=== PATIENT | male | born 1955 | race Caucasian/White ===

== ENCOUNTER → 2017-08-22 | Outpatient (CLI) | payer MEDICARE | LOC: CVU 07:39 | PROVIDERS: ATTEND Internal Medicine Cardiovascular Disease | DX: R94.31 Abnormal electrocardiogram [ECG] [EKG] (principal) | CPT/HCPCS: 93306 ==

== ENCOUNTER → 2017-08-23 | Outpatient (CLI) | payer MEDICARE | END | disposition home or self-care (01) | LOC: CFH 12:15 | PROVIDERS: ATTEND Internal Medicine Cardiovascular Disease | DX: Z01.810 Encounter for preprocedural cardiovascular examination (principal); R94.31 Abnormal electrocardiogram [ECG] [EKG] | CPT/HCPCS: 78452; 93017; A9502 ==

== ENCOUNTER 2019-03-12 14:43 | Outpatient (CLI) | END 2019-03-12 23:59 | disposition home or self-care (01) | LOC: RAD 14:43 | PROVIDERS: ATTEND Orthopaedic Surgery | DX: S76.111D Strain of right quadriceps muscle, fascia and tendon, subsequent encounter (principal); M79.661 Pain in right lower leg; X58.XXXD Exposure to other specified factors, subsequent encounter ==

== ENCOUNTER 2019-05-01 18:12 | Inpatient (IN) | payer MEDICARE ==
[~2019-05-01] VITALS: Ht 185.4 cm; Wt 105.9 kg
--- NOTE | 2019-05-01 18:59 | NUR ---
TASK RN: PT AMBULATORY WITH STEADY GAIT FROM LOBBY TO ROOM 37
--- NOTE | 2019-05-01 19:15 | NUR ---
THIS IS A 63 YO M W/ C/O LEFT LEG SWELLING, REDNESS AND PAIN POST CALF SX 12/25/18. RESP EVEN AND UNLABORED. NADN. VS UPDATED. PIV STARTED AND LABS DRAWN. CALL ALLAN IN REACH. DENIES FURTHER NEEDS AT THIS TIME. AWAITING ORDERS.
[2019-05-01 19:46] LABS: BASOPHILS # (AUTO) 0.04 x10^3/uL (0-0.1); BASOPHILS % (AUTO) 1 % (0-1); EOSINOPHILS % (AUTO) 4 % (1-7); LYMPHOCYTES # (AUTO) 1.77 x10^3/uL (1-3.4); LYMPHOCYTES % (AUTO) 20 % (22-44); MD NO; MEAN CORPUSCULAR HEMOGLOBIN 33.2 pg (27.5-34.5); MEAN CORPUSCULAR HGB CONC 33.3 g/dL (33.2-36.2); MEAN CORPUSCULAR VOLUME 99.7 fL (81-97); MEAN PLATELET VOLUME 8.4 fL (7.4-10.4); MONOCYTES # (AUTO) 1.06 x10^3/uL (0.2-0.8); MONOCYTES % (AUTO) 12 % (2-9); NEUTROPHILS # (AUTO) 5.49 x10^3/uL (1.8-6.8); NEUTROPHILS % (AUTO) 63 % (42-75); PLATELET COUNT 197 x10^3/uL (130-400); RED BLOOD COUNT 4.44 x10^6/uL (4.38-5.82); RED CELL DISTRIBUTION WIDTH 13.8 % (9.4-14.8)
[2019-05-01 19:55] LABS: INTERNATIONAL NORMALIZED RATIO 0.95 (0.93-1.1); PROTHROMBIN TIME 10.1 Seconds (9.6-11.5)
[2019-05-01 19:56] LABS: ALBUMIN 3.7 g/dL (3.4-5.0); ANION GAP 6 mmol/L (5-15); CHLORIDE 106 mmol/L (98-107)
[2019-05-01 19:59] LABS: ALANINE AMINOTRANSFERASE 22 U/L (12-78); ALKALINE PHOSPHATASE 98 U/L (45-117); BILIRUBIN,TOTAL 1.4 mg/dL (0.2-1.0); CREATININE 1.23 mg/dL (0.7-1.3); TOTAL PROTEIN 7.3 g/dL (6.4-8.2)
--- NOTE | 2019-05-01 20:46 | NUR ---
PT TO CT
--- NOTE | 2019-05-01 21:04 | NUR ---
VS UPDATED. PT RESTING ON GURNEY WATCHING TV AWAITING CTA RESULTS. CALL LIGHT IN REACH. DENIES FURTHER NEEDS AT THIS TIME.
[2019-05-01] MEDS ORDERED: OMNIPAQUE 350 MG/ML, 100ML BOTTLE ONE (21:14)
--- NOTE | 2019-05-01 21:27 | NUR ---
ALL TESTS RESULTED. PT IS UP FOR RECHECK AT THIS TIME.
[2019-05-01] MEDS ORDERED: APIXABAN 5 MG TABLET PO ONE (22:00)
[2019-05-01] MEDS ORDERED: APIXABAN 5 MG TABLET ONE ×2 (22:05)
--- NOTE | 2019-05-01 22:08 | NUR ---
VS UPDATED. PT AWARE OF POC TO BE ADMITTED. CALL LIGHT IN REACH. DENIES FURTHER NEEDS AT THIS TIME.
--- NOTE | 2019-05-01 23:02 | NUR ---
REPORT FROM CARLTON ROESN. AWAITING BED ASSIGNMENT.
--- NOTE | 2019-05-01 23:07 | NUR ---
REPORT TO CARLTON RODRIGUEZ. PT PREPARED FOR TRANSPORT
[2019-05-01 23:30] VITALS: BP 129/65
[2019-05-01 23:51] VITALS: BP 129/65
[2019-05-02] MEDS ORDERED: LIDODERM 5% PATCH TD PRN
[2019-05-02] MEDS ORDERED: ONDANSETRON ODT 4 MG PO PRN
[2019-05-02] MEDS ORDERED: ENALAPRILAT 1.25 MG/ML, 2ML IVPush PRN
[2019-05-02] MEDS ORDERED: ACETAMINOPHEN 325 MG TABLET PO PRN
[2019-05-02] MEDS ORDERED: DOCUSATE 100 MG CAPSULE PO PRN
[2019-05-02] MEDS: IBUPROFEN 200 MG TABLET PO PRN ×3 (00:34→20:10)
[2019-05-02 06:21] LABS: ANION GAP 5 mmol/L (5-15); BASOPHILS # (AUTO) 0.03 x10^3/uL (0-0.1); BASOPHILS % (AUTO) 1 % (0-1); CHLORIDE 109 mmol/L (98-107); EOSINOPHILS # (AUTO) 0.28 x10^3/uL (0-0.4); EOSINOPHILS % (AUTO) 4 % (1-7); LYMPHOCYTES # (AUTO) 1.69 x10^3/uL (1-3.4); LYMPHOCYTES % (AUTO) 27 % (22-44); MD NO; MEAN CORPUSCULAR HEMOGLOBIN 33.5 pg (27.5-34.5); MEAN CORPUSCULAR HGB CONC 33.5 g/dL (33.2-36.2); MEAN CORPUSCULAR VOLUME 99.9 fL (81-97); MEAN PLATELET VOLUME 7.8 fL (7.4-10.4); MONOCYTES # (AUTO) 0.87 x10^3/uL (0.2-0.8); MONOCYTES % (AUTO) 14 % (2-9); NEUTROPHILS # (AUTO) 3.42 x10^3/uL (1.8-6.8); NEUTROPHILS % (AUTO) 55 % (42-75); PLATELET COUNT 192 x10^3/uL (130-400); RED BLOOD COUNT 3.97 x10^6/uL (4.38-5.82); RED CELL DISTRIBUTION WIDTH 13.9 % (9.4-14.8)
[2019-05-02 06:22] LABS: CREATININE 1.06 mg/dL (0.7-1.3)
[2019-05-02 06:50] VITALS: BP 116/79
[2019-05-02] MEDS ORDERED: APIXABAN 5 MG TABLET PO SCH (09:00)
[2019-05-02] MEDS ORDERED: SODIUM CHLORIDE 0.9% 1,000 ML IV SCH (10:22)
[2019-05-02] MEDS ORDERED: CEFAZOLIN PMX 1GM/50ML 50 ML IVPB ONE (10:30)
[2019-05-02] MEDS ORDERED: LIDOCAINE 2%, 20ML ONE (12:04)
[2019-05-02] MEDS ORDERED: CEFAZOLIN PMX 1GM/50ML 0 ML ONE (12:04)
[2019-05-02] MEDS ORDERED: FENTANYL PF 100 MCG/2ML ONE (12:04)
[2019-05-02] MEDS ORDERED: MIDAZOLAM 1 MG/ML, 5ML ONE (12:04)
[2019-05-02] MEDS ORDERED: CEFAZOLIN 1,000 MG ONE (12:04)
[2019-05-02 14:02] VITALS: BP 112/73
[2019-05-02] MEDS ORDERED: HEPARIN 5,000 UNITS/ML, 1ML IV PRN (14:30)
[2019-05-02] MEDS ORDERED: HEPARIN 5,000 UNITS/ML, 1ML IV ONE (14:30)
[2019-05-02] MEDS ORDERED: HEPARIN 25,000 UNITS/250ML PMX 250 ML IV PRN (14:30)
[2019-05-02 20:07] VITALS: BP 101/56
[2019-05-02] MEDS: TEMAZEPAM 15 MG CAPSULE PO PRN (20:10)
[2019-05-02] MEDS: CALCIUM CARBONATE 500 MG TAB.CHEW PO PRN (20:14)
[2019-05-03 01:35] VITALS: BP 113/72
[2019-05-03 07:05] VITALS: BP 110/63
[2019-05-03] MEDS: SODIUM CHLORIDE 0.9% 1,000 ML IV SCH ×2 (10:14→16:59)
[2019-05-03] MEDS ORDERED: CEFAZOLIN PMX 1GM/50ML 50 ML IVPB ONE (12:00)
[2019-05-03] MEDS ORDERED: CEFAZOLIN PMX 1GM/50ML 50 ML ONE (12:33)
[2019-05-03] MEDS ORDERED: MIDAZOLAM 1 MG/ML, 5ML ONE (12:33)
[2019-05-03] MEDS ORDERED: FENTANYL PF 100 MCG/2ML ONE ×2 (12:33→13:29)
[2019-05-03] MEDS ORDERED: CEFAZOLIN 1,000 MG ONE (12:34)
[2019-05-03] MEDS ORDERED: DIPHENHYDRAMINE 50 MG/ML, 1ML ONE (13:24)
[2019-05-03] MEDS ORDERED: LIDOCAINE 1%, 20ML ONE (13:29)
[2019-05-03] MEDS ORDERED: HOLD MEDICATION MC PRN (14:30)
[2019-05-03] MEDS: HYDROcodone/APAP 5/325 TABLET PO PRN ×2 (14:47→18:47)
[2019-05-03 15:05] VITALS: BP 116/75
[2019-05-03 18:52] VITALS: BP 115/75
[2019-05-03] MEDS: SODIUM CHLORIDE FLUSH 10ML SYR IVF SCH (21:00)
[2019-05-03] MEDS: CALCIUM CARBONATE 500 MG TAB.CHEW PO PRN (21:18)
[2019-05-03] MEDS: TEMAZEPAM 15 MG CAPSULE PO PRN (21:32)
[2019-05-03] MEDS: CEFAZOLIN PMX 1GM/50ML 50 ML IVPB SCH (21:32)
[2019-05-04 00:40] VITALS: BP 117/74
[2019-05-04] MEDS: HYDROcodone/APAP 5/325 TABLET PO PRN ×3 (04:19→17:33)
[2019-05-04] MEDS: CEFAZOLIN PMX 1GM/50ML 50 ML IVPB SCH ×2 (04:55→14:10)
[2019-05-04 05:16] LABS: CHLORIDE 109 mmol/L (98-107)
[2019-05-04 05:25] LABS: ALANINE AMINOTRANSFERASE 18 U/L (12-78); ALKALINE PHOSPHATASE 77 U/L (45-117); ANION GAP 4 mmol/L (5-15); BILIRUBIN,TOTAL 0.5 mg/dL (0.2-1.0); CALCIUM 8.2 mg/dL (8.5-10.1); CREATININE 0.87 mg/dL (0.7-1.3); TOTAL PROTEIN 6.2 g/dL (6.4-8.2)
[2019-05-04 06:18] LABS: BASOPHILS # (AUTO) 0.03 x10^3/uL (0-0.1); BASOPHILS % (AUTO) 0 % (0-1); EOSINOPHILS # (AUTO) 0.26 x10^3/uL (0-0.4); EOSINOPHILS % (AUTO) 4 % (1-7); LYMPHOCYTES # (AUTO) 1.36 x10^3/uL (1-3.4); LYMPHOCYTES % (AUTO) 20 % (22-44); MD NO; MEAN CORPUSCULAR HEMOGLOBIN 33.3 pg (27.5-34.5); MEAN CORPUSCULAR HGB CONC 33.4 g/dL (33.2-36.2); MEAN CORPUSCULAR VOLUME 99.7 fL (81-97); MEAN PLATELET VOLUME 8.1 fL (7.4-10.4); MONOCYTES # (AUTO) 0.66 x10^3/uL (0.2-0.8); MONOCYTES % (AUTO) 10 % (2-9); NEUTROPHILS # (AUTO) 4.56 x10^3/uL (1.8-6.8); NEUTROPHILS % (AUTO) 67 % (42-75); PLATELET COUNT 238 x10^3/uL (130-400); RED BLOOD COUNT 3.85 x10^6/uL (4.38-5.82); RED CELL DISTRIBUTION WIDTH 13.5 % (9.4-14.8)
[2019-05-04 06:33] VITALS: BP 143/82
[2019-05-04] MEDS: SODIUM CHLORIDE FLUSH 10ML SYR IVF SCH ×2 (09:00→21:00)
[2019-05-04] MEDS: IBUPROFEN 200 MG TABLET PO PRN ×2 (13:19→21:54)
[2019-05-04 13:25] VITALS: BP 114/75
[2019-05-04] MEDS: CALCIUM CARBONATE 500 MG TAB.CHEW PO PRN ×2 (16:32→21:54)
[2019-05-04 19:19] VITALS: BP 111/69
[2019-05-04] MEDS ORDERED: APIXABAN 5 MG TABLET PO ONE (21:00)
[2019-05-04] MEDS: TEMAZEPAM 15 MG CAPSULE PO PRN (22:03)
[2019-05-05 01:29] VITALS: BP 148/89
[2019-05-05] MEDS: HYDROcodone/APAP 5/325 TABLET PO PRN ×4 (04:19→20:40)
[2019-05-05 05:10] LABS: ANION GAP 5 mmol/L (5-15); CALCIUM 8.5 mg/dL (8.5-10.1); CHLORIDE 106 mmol/L (98-107); CREATININE 0.89 mg/dL (0.7-1.3)
[2019-05-05 05:17] LABS: BASOPHILS # (AUTO) 0.03 x10^3/uL (0-0.1); BASOPHILS % (AUTO) 1 % (0-1); EOSINOPHILS # (AUTO) 0.28 x10^3/uL (0-0.4); EOSINOPHILS % (AUTO) 5 % (1-7); LYMPHOCYTES # (AUTO) 1.51 x10^3/uL (1-3.4); LYMPHOCYTES % (AUTO) 25 % (22-44); MD NO; MEAN CORPUSCULAR HEMOGLOBIN 33.3 pg (27.5-34.5); MEAN CORPUSCULAR HGB CONC 33.3 g/dL (33.2-36.2); MEAN CORPUSCULAR VOLUME 99.8 fL (81-97); MEAN PLATELET VOLUME 8.3 fL (7.4-10.4); MONOCYTES # (AUTO) 0.68 x10^3/uL (0.2-0.8); MONOCYTES % (AUTO) 11 % (2-9); NEUTROPHILS # (AUTO) 3.57 x10^3/uL (1.8-6.8); NEUTROPHILS % (AUTO) 59 % (42-75); PLATELET COUNT 246 x10^3/uL (130-400); RED BLOOD COUNT 4.05 x10^6/uL (4.38-5.82); RED CELL DISTRIBUTION WIDTH 13.6 % (9.4-14.8)
[2019-05-05 08:31] VITALS: BP 115/77
[2019-05-05] MEDS: APIXABAN 5 MG TABLET PO SCH ×2 (08:36→20:39)
[2019-05-05] MEDS: SODIUM CHLORIDE FLUSH 10ML SYR IVF SCH ×2 (08:36→20:50)
[2019-05-05] MEDS ORDERED: BUPR450T PO (08:46)
[2019-05-05] MEDS ORDERED: FEXO1TAB29 PO (08:46)
[2019-05-05] MEDS ORDERED: TAMS-11 PO (08:46)
[2019-05-05] MEDS ORDERED: FUROSEMIDE 20 MG TABLET PO ONE (11:00)
[2019-05-05] MEDS: TAMSULOSIN 0.4 MG CAP.ER.24H PO SCH (11:33)
[2019-05-05 13:20] VITALS: BP 115/72
[2019-05-05 20:08] VITALS: BP 116/78
[2019-05-05] MEDS: TEMAZEPAM 15 MG CAPSULE PO PRN (20:39)
[2019-05-05] MEDS: CALCIUM CARBONATE 500 MG TAB.CHEW PO PRN (20:40)
[2019-05-06] MEDS: HYDROcodone/APAP 5/325 TABLET PO PRN ×4 (02:29→21:42)
[2019-05-06 02:30] VITALS: BP 116/78
[2019-05-06 07:15] VITALS: BP 117/84
[2019-05-06] MEDS: APIXABAN 5 MG TABLET PO SCH ×2 (08:05→21:41)
[2019-05-06] MEDS: TAMSULOSIN 0.4 MG CAP.ER.24H PO SCH (08:05)
[2019-05-06] MEDS: SODIUM CHLORIDE FLUSH 10ML SYR IVF SCH ×2 (08:06→21:00)
[2019-05-06 08:09] LABS: ANION GAP 5 mmol/L (5-15); CALCIUM 8.4 mg/dL (8.5-10.1); CHLORIDE 106 mmol/L (98-107); CREATININE 0.89 mg/dL (0.7-1.3)
[2019-05-06] MEDS: CALCIUM CARBONATE 500 MG TAB.CHEW PO PRN ×3 (11:22→20:38)
[2019-05-06 13:40] VITALS: BP 114/74
[2019-05-06 19:41] VITALS: BP 130/84
[2019-05-06] MEDS: TEMAZEPAM 15 MG CAPSULE PO PRN (21:41)
[2019-05-07 00:18] VITALS: BP 138/84
[2019-05-07] MEDS: HYDROcodone/APAP 5/325 TABLET PO PRN ×3 (03:02→21:22)
[2019-05-07 06:45] VITALS: BP 106/71
[2019-05-07 07:29] LABS: BASOPHILS # (AUTO) 0.03 x10^3/uL (0-0.1); BASOPHILS % (AUTO) 1 % (0-1); EOSINOPHILS # (AUTO) 0.28 x10^3/uL (0-0.4); EOSINOPHILS % (AUTO) 4 % (1-7); LYMPHOCYTES # (AUTO) 1.61 x10^3/uL (1-3.4); LYMPHOCYTES % (AUTO) 25 % (22-44); MD NO; MEAN CORPUSCULAR HEMOGLOBIN 33.6 pg (27.5-34.5); MEAN CORPUSCULAR HGB CONC 33.5 g/dL (33.2-36.2); MEAN CORPUSCULAR VOLUME 100.3 fL (81-97); MEAN PLATELET VOLUME 7.9 fL (7.4-10.4); MONOCYTES # (AUTO) 0.61 x10^3/uL (0.2-0.8); MONOCYTES % (AUTO) 10 % (2-9); NEUTROPHILS % (AUTO) 61 % (42-75); PLATELET COUNT 283 x10^3/uL (130-400); RED BLOOD COUNT 4.18 x10^6/uL (4.38-5.82); RED CELL DISTRIBUTION WIDTH 13.3 % (9.4-14.8)
[2019-05-07 07:38] LABS: ANION GAP 7 mmol/L (5-15); CALCIUM 8.5 mg/dL (8.5-10.1); CHLORIDE 107 mmol/L (98-107); CREATININE 0.93 mg/dL (0.7-1.3)
[2019-05-07] MEDS: TAMSULOSIN 0.4 MG CAP.ER.24H PO SCH (08:13)
[2019-05-07] MEDS: CALCIUM CARBONATE 500 MG TAB.CHEW PO PRN ×3 (08:13→18:37)
[2019-05-07] MEDS: APIXABAN 5 MG TABLET PO SCH ×2 (08:14→21:22)
[2019-05-07] MEDS: SODIUM CHLORIDE FLUSH 10ML SYR IVF SCH ×2 (08:14→21:00)
[2019-05-07 14:25] VITALS: BP 124/80
[2019-05-07 20:08] VITALS: BP 127/88
[2019-05-07] MEDS: TEMAZEPAM 15 MG CAPSULE PO PRN (21:22)
[2019-05-08 03:33] VITALS: BP 116/76
[2019-05-08] MEDS: HYDROcodone/APAP 5/325 TABLET PO PRN (06:37)
[2019-05-08 08:07] VITALS: BP 118/75
[2019-05-08] MEDS: SODIUM CHLORIDE FLUSH 10ML SYR IVF SCH (09:00)
[2019-05-08] MEDS: APIXABAN 5 MG TABLET PO SCH (09:11)
[2019-05-08] MEDS: CALCIUM CARBONATE 500 MG TAB.CHEW PO PRN ×2 (09:11→14:13)
[2019-05-08] MEDS: TAMSULOSIN 0.4 MG CAP.ER.24H PO SCH (09:11)
[2019-05-08] MEDS ORDERED: APIX5TAB PO (11:23)
[2019-05-08 13:23] VITALS: BP 111/75
[2019-05-12] MEDS ORDERED: APIXABAN 5 MG TABLET PO SCH (09:00)
== END 2019-05-08 16:05 | disposition home or self-care (01) | DRG 981 ==
LOC: ED 23:05 → 5SO 23:41 → DCLOUNGE 05-08 15:54
PROVIDERS: ADMIT Internal Medicine; ATTEND Hospitalist
PROC: 02H63JZ Insertion of Pacemaker Lead into Right Atrium, Percutaneous Approach (ICD-10-PCS; principal; 2019-05-03)
PROC: 02HK3JZ Insertion of Pacemaker Lead into Right Ventricle, Percutaneous Approach (ICD-10-PCS; 2019-05-03)
PROC: 0JH606Z Insertion of Pacemaker, Dual Chamber into Chest Subcutaneous Tissue and Fascia, Open Approach (ICD-10-PCS; 2019-05-03)
DX: I26.99 Other pulmonary embolism without acute cor pulmonale (principal); J96.01 Acute respiratory failure with hypoxia; I82.402 Acute embolism and thrombosis of unspecified deep veins of left lower extremity; I44.2 Atrioventricular block, complete; I27.20 Pulmonary hypertension, unspecified; F10.10 Alcohol abuse, uncomplicated; E78.00 Pure hypercholesterolemia, unspecified; I50.9 Heart failure, unspecified; Z82.3 Family history of stroke; Z79.01 Long term (current) use of anticoagulants; F17.200 Nicotine dependence, unspecified, uncomplicated; F12.90 Cannabis use, unspecified, uncomplicated; E78.5 Hyperlipidemia, unspecified; Z88.5 Allergy status to narcotic agent
CPT/HCPCS: 33208; 36415; 71045; 71275; 80048; 80053; 83735; 85025; 85520; 85610; 85730; 93005; 99156; 99157; 99285; C1779; C1785; C1892; G0378; J0690; J2250; J3010; Q9967; J1200; J7030

== ENCOUNTER → 2019-05-01 | Outpatient (CLI) | payer MEDICARE | END | disposition home or self-care (01) | LOC: RAD 16:45 | PROVIDERS: ATTEND Physician Assistant Surgical | DX: S76.112D Strain of left quadriceps muscle, fascia and tendon, subsequent encounter (principal); I82.412 Acute embolism and thrombosis of left femoral vein; I82.432 Acute embolism and thrombosis of left popliteal vein; I82.4Z2 Acute embolism and thrombosis of unspecified deep veins of left distal lower extremity; X58.XXXD Exposure to other specified factors, subsequent encounter ==

== ENCOUNTER 2019-05-16 15:43 | Emergency (ER) | payer MEDICARE ==
[~2019-05-16] VITALS: Ht 188 cm; Wt 107.9 kg
[~2019-05-16 15:43] MED LIST: APIX5TAB PO; BUPR450T PO; FEXO1TAB29 PO; TAMS-11 PO
--- NOTE | 2019-05-16 16:37 | NUR ---
Pt to rm 17 from [facility]
--- NOTE | 2019-05-16 16:57 | NUR ---
PT AMBULATORY TO ED FROM HOME. SENT IN PER HH RN: INCR EDEMA BILAT LOWERS, SOB AT REST. 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 L LEG>R LEG, L LEG RED, WARM. 3+PITTING EDEMA. DP 1+ L LEG, 2+ R LEG. ALSO HAS PACEMAKER L CHEST FOR UNK REASON. DENIES CP. NOT COUGHING ANYTHING UP. 95% RA. PIV EST LABS DRAWN. PACED ON MONITOR. VSS. CALL MADRID IN REACH. AWAITING PROVIDER.
[2019-05-16 17:30] LABS: BASOPHILS # (AUTO) 0.04 x10^3/uL (0-0.1); BASOPHILS % (AUTO) 1 % (0-1); EOSINOPHILS # (AUTO) 0.24 x10^3/uL (0-0.4); EOSINOPHILS % (AUTO) 4 % (1-7); LYMPHOCYTES # (AUTO) 1.58 x10^3/uL (1-3.4); LYMPHOCYTES % (AUTO) 27 % (22-44); MD NO; MEAN CORPUSCULAR HEMOGLOBIN 33.1 pg (27.5-34.5); MEAN CORPUSCULAR HGB CONC 32.9 g/dL (33.2-36.2); MEAN CORPUSCULAR VOLUME 100.5 fL (81-97); MEAN PLATELET VOLUME 8.4 fL (7.4-10.4); MONOCYTES # (AUTO) 0.43 x10^3/uL (0.2-0.8); MONOCYTES % (AUTO) 7 % (2-9); NEUTROPHILS # (AUTO) 3.64 x10^3/uL (1.8-6.8); NEUTROPHILS % (AUTO) 61 % (42-75); PLATELET COUNT 307 x10^3/uL (130-400); RED BLOOD COUNT 4.13 x10^6/uL (4.38-5.82); RED CELL DISTRIBUTION WIDTH 13.6 % (9.4-14.8)
[2019-05-16 17:37] LABS: ALANINE AMINOTRANSFERASE 25 U/L (12-78); ALBUMIN 3.6 g/dL (3.4-5.0); ANION GAP 3 mmol/L (5-15); CALCIUM 8.6 mg/dL (8.5-10.1); CHLORIDE 108 mmol/L (98-107); CREATININE 1.06 mg/dL (0.7-1.3)
[2019-05-16 17:41] LABS: ALKALINE PHOSPHATASE 93 U/L (45-117); BILIRUBIN,TOTAL 0.3 mg/dL (0.2-1.0); TOTAL PROTEIN 6.8 g/dL (6.4-8.2); TROPONIN I < 0.015 ng/mL (0.000-0.045)
[2019-05-16 17:43] LABS: INTERNATIONAL NORMALIZED RATIO 0.95 (0.93-1.1); PROTHROMBIN TIME 10.1 Seconds (9.6-11.5)
[2019-05-16] MEDS ORDERED: OMNIPAQUE 350 MG/ML, 100ML BOTTLE ONE (18:45)
--- NOTE | 2019-05-16 18:47 | NUR ---
PT UPDATED ON POC, ERMD IN TO UPDATE PT. ANTICIPATE DC
[2019-05-16 19:21] VITALS: BP 137/90
== END 2019-05-16 19:24 | disposition home or self-care (01) ==
LOC: ED 16:30
DX: I82.412 Acute embolism and thrombosis of left femoral vein (principal); R06.02 Shortness of breath; E78.00 Pure hypercholesterolemia, unspecified; Z95.0 Presence of cardiac pacemaker
CPT/HCPCS: 36415; 71275; 80053; 83880; 84484; 85025; 85610; 85730; 93005; 93971; 99284; Q9967

== ENCOUNTER → 2020-01-21 | Outpatient (CLI) | payer MEDICARE | END | disposition home or self-care (01) | LOC: CVU 10:30 | PROVIDERS: ATTEND Internal Medicine Cardiovascular Disease | DX: I08.3 Combined rheumatic disorders of mitral, aortic and tricuspid valves (principal); I47.1 Supraventricular tachycardia | CPT/HCPCS: 93306 ==